=== PATIENT | female | born 1980 | race Caucasian/White ===

== ENCOUNTER → 2024-03-19 09:05 | Outpatient (REF) | payer BC, SELFPAY | LOC: HWWDC 09:05 | PROVIDERS: ATTENDING PHYSICIAN Internal Medicine | DX: Z12.31 Encounter for screening mammogram for malignant neoplasm of breast (principal) | CPT/HCPCS: 77063; 77067 ==

== ENCOUNTER → 2025-03-20 08:56 | Outpatient (REF) | payer BC, SELFPAY | LOC: HWWDC 08:56 | PROVIDERS: ATTENDING PHYSICIAN Internal Medicine | DX: Z12.31 Encounter for screening mammogram for malignant neoplasm of breast (principal) | CPT/HCPCS: 77063; 77067 ==